=== PATIENT | female | born 1985 | race Hispanic/Latino ===

== ENCOUNTER 2019-02-13 18:50 | Emergency (ER) | payer BC ==
[2019-02-13] MEDS ORDERED: KETOROLAC TROMETHAMINE 60 MG/2 ML VIAL ONE (19:12)
[2019-02-13] MEDS ORDERED: LIDOCAINE 5% TOPICAL PATCH TP ONE (19:12)
[2019-02-13] MEDS ORDERED: DIAZEPAM 5 MG TABLET ONE (19:13)
[2019-02-13] MEDS ORDERED: ONDANSETRON HCL 4 MG/2 ML VIAL ONE (20:14)
[2019-02-13] MEDS ORDERED: MORPHINE SULFATE 4 MG/1ML SYG ONE (20:15)
== END 2019-02-13 21:02 | disposition home or self-care (01) ==
LOC: EDH 18:50
DX: M54.5 Low back pain (principal); Z98.890 Other specified postprocedural states
CPT/HCPCS: 96372; 96374; 96375; 99284; J1885; J2270; J2405

== ENCOUNTER 2024-07-09 16:25 | Emergency (ER) | payer BC, MEDICAID ==
[~2024-07-09] VITALS: Ht 170.2 cm; Wt 85.3 kg
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
[2024-07-09 16:37] VITALS: BP 124/80; PULSE 86; RESP 14; TEMP 98.2; O2SAT 100
[2024-07-09] MEDS: acetaMINOPHEN 500 MG TABLET PO ONE (16:49)
[2024-07-09] MEDS: teTANUS/diphthERIA TOXOID [ADULT] 0.5 ML VIAL IM ONE (16:51)
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
[2024-07-09] MEDS ORDERED: IBUP-2077 PO (17:54)
== END 2024-07-09 18:04 | disposition home or self-care (01) ==
LOC: EDH 16:25
DX: S90.112A Contusion of left great toe without damage to nail, initial encounter (principal); S90.412A Abrasion, left great toe, initial encounter; Z98.890 Other specified postprocedural states; W22.8XXA Striking against or struck by other objects, initial encounter; Y93.89 Activity, other specified; Y92.89 Other specified places as the place of occurrence of the external cause; Y99.8 Other external cause status
CPT/HCPCS: 73630; 90471; 90714; 99283